=== PATIENT | female | born 2005 | race American Indian/Alaskan Native ===

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

== ENCOUNTER 2023-08-19 10:15 | Emergency (ER) | payer SELFPAY ==
[2023-08-19] MEDS: GI Cocktail Oral Solution 30 ML PO ONE (10:37)
[2023-08-19] MEDS: Sodium Chloride 0.9% 1,000 ML IV ONE (11:15)
[2023-08-19] MEDS: Ondansetron 4 MG/2 ML SDV IVPUSH ONE (11:16)
[2023-08-19 11:17] LABS: BASOPHILS PERCENT AUTO 0.2 % (0.0-1.0); EOSINOPHILS PERCENT AUTO 2.2 % (1.0-3.0); HEMATOCRIT 40.8 % (37.0-47.0); HEMOGLOBIN 13.9 g/dL (12.0-16.0); LYMPHOCYTES PERCENT AUTO 19.6 % (20.5-50.1); MEAN CORPUSCULAR HEMOGLOBIN 30.5 pg (27.0-34.0); MEAN CORPUSCULAR HGB CONC 34.1 g/dL (33.0-35.0); MEAN CORPUSCULAR VOLUME 89.5 fL (80-100); MONOCYTES PERCENT AUTO 4.5 % (2-8); NEUTROPHILS PERCENT AUTO 73.5 % (42.2-75.2); PLATELET COUNT,PLT 223 10^3/uL (150-450); RED BLOOD CELL COUNT 4.56 10^6/uL (4.2-5.4); WHITE BLOOD CELL COUNT,WBC 10.3 10^3/uL (5.0-10.0)
[2023-08-19] MEDS: Metoclopramide 10 MG/2 ML SDV IVPUSH ONE (11:20)
[2023-08-19 11:22] LABS: APPEARANCE,URINE SLIGHTLY CLOUDY (CLEAR); BILIRUBIN,URINE NEGATIVE (NEGATIVE); COLOR,URINE YELLOW (YELLOW); GLUCOSE,URINE NEGATIVE (NEGATIVE); KETONES,URINE NEGATIVE (NEGATIVE); LEUKOCYTE ESTERASE,URINE SMALL (NEGATIVE); NITRITE,URINE NEGATIVE (NEGATIVE); OCCULT BLOOD,URINE TRACE-INTACT (NEGATIVE); PROTEIN,URINE NEGATIVE (NEGATIVE)
[2023-08-19] MEDS: Sodium Chloride 0.9% 10 ML Syringe FLUSH PRN (11:28)
[2023-08-19 11:33] LABS: RBC,URINE 0-5 /HPF (0-5)
[2023-08-19 11:34] LABS: AMORPHOUS SEDIMENT,URINE FEW /HPF (NOT SEEN); EPITHELIAL CELLS,URINE FEW /HPF (NOT SEEN); MUCUS,URINE MANY /LPF (NOT SEEN)
[2023-08-19 11:35] LABS: BACTERIA,URINE FEW /HPF (0-FEW/HPF)
[2023-08-19 11:38] LABS: A/G RATIO 0.9; ALANINE AMINOTRANSFERASE,ALT 21 U/L (14-59); ALBUMIN 3.7 g/dL (3.4-5.0); ALKALINE PHOSPHATASE 103 U/L (46-116); ANION GAP 13.7 mEq/L (7-13); ASPARTATE AMNIOTRANSFERASE,AST 17 U/L (15-37); BILIRUBIN TOTAL 0.6 mg/dL (0.2-1.0); BLOOD UREA NITROGEN,BUN 7 mg/dL (7-18); CALCIUM 8.1 mg/dL (8.5-10.1); CARBON DIOXIDE,CO2 25 mmol/L (21-32); CHLORIDE,CL 101 mmol/L (98-107); CREATININE 0.78 mg/dL (0.55-1.02); ESTIMATED GFR 112 mL/min (>=60); GLUCOSE RANDOM 112 mg/dL (70-99); LIPASE 36 U/L (16-77); POTASSIUM,K 3.7 mmol/L (3.5-5.1); PROTEIN TOTAL,TP 7.6 g/dL (6.4-8.2); SODIUM,NA 136 mmol/L (136-145)
== END 2023-08-19 12:11 | disposition home or self-care (01) ==
LOC: DL.ED 10:15
DX: N30.00 Acute cystitis without hematuria (principal); R10.13 Epigastric pain; Z79.899 Other long term (current) drug therapy
CPT/HCPCS: 36415; 80053; 81001; 81025; 83690; 85025; 87086; 96361; 96374; 96375; 99283; 99283-25; A9270-GY; J2405; J2765; J3490; J7030

== ENCOUNTER 2024-06-01 18:02 | Emergency (ER) | payer SELFPAY ==
[2024-06-01] MEDS ORDERED: Sodium Chloride 0.9% 10 ML Syringe FLUSH PRN (18:57)
[2024-06-01] MEDS: diphenhydrAMINE 50 MG/ML SDV IVPUSH ONE (19:00)
[2024-06-01] MEDS: methylPREDNISolone Sodium Succinate 125 MG/2 ML SDV IVPUSH ONE (19:00)
[2024-06-01 19:21] LABS: BASOPHILS PERCENT AUTO 0.3 % (0.0-1.0); EOSINOPHILS PERCENT AUTO 2.2 % (1.0-3.0); HEMATOCRIT 47.5 % (37.0-47.0); HEMOGLOBIN 15.9 g/dL (12.0-16.0); LYMPHOCYTES PERCENT AUTO 19.3 % (20.5-50.1); MEAN CORPUSCULAR HGB CONC 33.5 g/dL (33.0-35.0); MEAN CORPUSCULAR VOLUME 92.6 fL (80-100); MONOCYTES PERCENT AUTO 4.6 % (2-8); NEUTROPHILS PERCENT AUTO 73.6 % (42.2-75.2); PLATELET COUNT,PLT 304 10^3/uL (150-450); RED BLOOD CELL COUNT 5.13 10^6/uL (4.2-5.4); WHITE BLOOD CELL COUNT,WBC 9.1 10^3/uL (5.0-10.0)
[2024-06-01 19:55] LABS: A/G RATIO 0.6; ALBUMIN 3.5 g/dL (3.4-5.0); BUN/CREATININE RATIO 5.1 (No establ ref range); CALCIUM 9.5 mg/dL (8.5-10.1); CREATININE 0.79 mg/dL (0.55-1.02); EST CRCL DRUG DOSING (CG) 93.97 mL/min; PROTEIN TOTAL,TP 9.1 g/dL (6.4-8.2)
[2024-06-01 20:03] LABS: ANION GAP 13.5 mEq/L (7-13); POTASSIUM,K 3.5 mmol/L (3.5-5.1)
[2024-06-01] MEDS: Famotidine 20 MG/2 ML SDV IVPUSH ONE (20:26)
== END 2024-06-01 20:35 | disposition home or self-care (01) ==
LOC: DL.ED 18:02
DX: L23.9 Allergic contact dermatitis, unspecified cause (principal)
CPT/HCPCS: 36415; 80053; 85025; 86735; 86762; 86765; 93005; 93010; 96374; 96375; 99283; 99284; J1200; J2919